=== PATIENT | female | born 1955 | race Hispanic/Latino ===

== ENCOUNTER 2023-12-06 08:05 | Day surgery (SDC) | payer MEDICARE ==
[2023-12-02 11:06] VITALS: BP 139/65; PULSE 77; RESP 20
[2023-12-02 11:21] LABS: BASOPHILS # (AUTO) 0.08 K/uL (0.00-0.20); BASOPHILS % (AUTO) 1.1 % (0.0-5.0); EOSINOPHILS % (AUTO) 1.4 % (0.0-8.0); HEMATOCRIT 37.8 % (36-48); IMMATURE GRANULOCYTE ABSOLUTE 0.13 K/uL (0-1); LYMPHOCYTES # (AUTO) 0.5 K/uL (1.0-4.8); LYMPHOCYTES % (AUTO) 7.3 % (21.0-51.0); MEAN CORPUSCULAR HEMOGLOBIN 31.1 pg (27.0-33.0); MEAN CORPUSCULAR HGB CONC 31.2 g/dL (32.0-36.0); MEAN CORPUSCULAR VOLUME 99.7 fL (79-99); MONOCYTES # (AUTO) 0.7 K/uL (0.1-1.0); NEUTROPHILS # (AUTO) 5.7 K/uL (1.8-7.7); NEUTROPHILS % (AUTO) 78.4 % (40.0-77.0); PLATELET COUNT (AUTO) 168 K/uL (130-400); RED BLOOD CELL COUNT(AUTO) 3.79 MIL/uL (4.00-5.50); WHITE BLOOD COUNT (AUTO) 7.3 K/uL (4.8-10.8)
[2023-12-02 11:22] LABS: ALBUMIN 2.8 g/dL (3.5-5.0); BILIRUBIN,TOTAL 0.9 mg/dL (0.2-1.0); CREATININE 6.4 mg/dL (0.5-1.5); POTASSIUM 3.8 mmol/L (3.5-5.1); TOTAL PROTEIN, SERUM 6.4 g/dL (6.0-8.3)
[2023-12-02 11:33] LABS: INR 1.14 (0.85-1.15); PROTHROMBIN TIME 13.1 SEC (9.6-11.6)
[2023-12-02 11:35] LABS: PARTIAL THROMBOPLASTIN TIME 32.5 SEC (26.3-35.5)
[2023-12-06] VITALS (20 sets, daily range): BP systolic 117–151; BP diastolic 56–81; PULSE 70–77; RESP 15–20
[~2023-12-06 08:05] MED LIST: ACET-2079 PO; APIX2.5T PO; ASCO250T22 PO; DOCU100C33 PO; ESCI20TA PO; FOLI1TAB85 PO; GABA-529 PO; LEVO50TA4 PO; METO5 PO; MIDO10TA PO; MIRT7.5T11 PO; ONDA-104 PO; POLY17PO4 PO; PRED5TAB PO; PROT946L PO; PSYL1PAC11 PO; SEVE800T27 PO; TACR0.5C7 PO; ZINC30CA PO
[2023-12-06] MEDS ORDERED: 0.9% NACL 500ML IV.SOLN 500 ML IV ONE (08:31)
[2023-12-06] MEDS ORDERED: CEFAZOLIN SODIUM 2 GM VIAL ONE (08:31)
[2023-12-06] MEDS ORDERED: BUPIVACAINE/PF 0.25% 30ML VIAL IJ ONE ×3 (10:36→13:41)
[2023-12-06] MEDS ORDERED: LIDOCAINE HCL 1% 20 ML VIAL ONE (10:36)
[2023-12-06] MEDS ORDERED: FENTANYL CITRATE PF 50 MCG/1 ML 2ML VIAL ONE (11:57)
[2023-12-06] MEDS ORDERED: PROPOFOL 10 MG/ML 20ML VIAL IV ONE (11:57)
[2023-12-06] MEDS ORDERED: ROCURONIUM BROMIDE 10MG/1ML 5ML VL ONE (11:57)
[2023-12-06] MEDS ORDERED: CEFAZOLIN SODIUM 2 GM VIAL IVPB ONE (12:15)
[2023-12-06] MEDS ORDERED: ONDANSETRON 4MG INJ ONE (12:18)
[2023-12-06] MEDS ORDERED: PHENYLEPHRINE HCL 10 MG/ML 1ML VIAL IV ONE (12:18)
[2023-12-06] MEDS ORDERED: DEXAMETHASONE SOD PHOSPHATE 10MG/ML 1ML VIAL ONE (12:18)
[2023-12-06] MEDS ORDERED: LIDOCAINE HCL 1% 20 ML VIAL INJ ONE ×2 (12:41→13:41)
[2023-12-06] MEDS ORDERED: HEPARIN 10,000 UNIT/10ML (1,000 UNIT/ML) VIAL ONE (12:42)
[2023-12-06] MEDS ORDERED: PROTAMINE SULFATE 10 MG/ML 5 ML VIAL ONE (13:18)
[2023-12-06] MEDS ORDERED: NEOSTIGMINE METHYLSULFATE 1MG/ML IV ONE (13:31)
[2023-12-06] MEDS ORDERED: GLYCOPYRROLATE 0.2 MG/ML 5 ML VIAL ONE (13:31)
[2023-12-06] MEDS ORDERED: IBUP-2077 PO (15:13)
== END 2023-12-06 15:50 | disposition home or self-care (01) ==
LOC: DAH 08:05
PROVIDERS: ATTEND Student in an Organized Health Care Education/Training Program
DX: E11.22 Type 2 diabetes mellitus with diabetic chronic kidney disease (principal); I13.2 Hypertensive heart and chronic kidney disease with heart failure and with stage 5 chronic kidney disease, or end stage renal disease; N18.6 End stage renal disease; I50.9 Heart failure, unspecified; F41.9 Anxiety disorder, unspecified; E78.5 Hyperlipidemia, unspecified; Z99.2 Dependence on renal dialysis; Z79.01 Long term (current) use of anticoagulants; Z79.899 Other long term (current) drug therapy; Z88.2 Allergy status to sulfonamides
CPT/HCPCS: 80053; 85025; 85610; 85730; 86850 ×2; 86900 ×2; 86901 ×2; 36415 ×2; 93005; 36830; 84132; 82948; A6260; A4663; A4649 ×3; C1768; J7040; J3010; J1100; J0665 ×2; J3490 ×2; J2720; J1644 ×2; J2704; J2405; J2710; J2371; J0690 ×2; C1713 ×2; A4930; A4215; A4223; A4222; A4221